=== PATIENT | male | born 1985 | race Caucasian/White ===

== ENCOUNTER 2020-01-28 09:44 | Inpatient (IN) | payer MEDICAID, SELFPAY ==
[2020-01-28] VITALS (13 sets, daily range): BP systolic 106–208; BP diastolic 59–93; PULSE 68–118; RESP 13–20; TEMP 35.8–36.9; O2SAT 95–100; BMI 24.0
--- NOTE | 2020-01-28 09:53 | ED.SEIZURE ---
HPI - Seizure General Chief Complaint: Seizure Stated Complaint: seizure Time Seen by Provider: 01/28/20 09:52 Source: family and EMS Mode of arrival: EMS Limitations: altered mental status History of Present Illness HPI Narrative: patient with seizure disorder did not take medications x 2 days (keppra) per family seized 4 times at GTC with EMS no return to baseline and on arrival to ED another GTC seizure lasting 1 minute, no medications given en route complaint: seizure Onset (ago): hour(s) (started at 6am) Description of Episode: loss of consciousness and tonic-clonic movement Duration of episode: 2 -: minutes(s) Trauma: No Seizure History: Yes Place: Home Possible Precipitating Event: other (missed medications x 2 days) Treatments prior to arrival: none Related Data Allergies Allergy/AdvReac Type Severity Reaction Status Date / Time codeine [CODEINE] Allergy Unknown UNKNOWN Verified 01/28/20 09:48 procaine [From NOVOCAIN] Allergy Unknown UNKNOWN Verified 01/28/20 09:48 Review of Systems Review of Systems: ROS unable to be obtained due to altered mental status [facility] Past Medical History Medical History (Updated 01/28/20 @ 12:04 by Diane Shrestha DO) Bipolar 1 disorder Coronary artery disease Depression Hypertension Seizure Social History Social History (Updated 01/28/20 @ 10:05 by Diane Shrestha DO) Smoking Status: Current every day smoker Substance Use Type: Marijuana Advance Directives: No Advance Directives Information Provided: No Physical Exam Vital Signs and I&O and Narrative: Vital Signs and I&O: Vital Signs Temp 96.4 F L 01/28/20 09:48 Pulse 106 H 01/28/20 11:44 Resp 20 01/28/20 11:44 BP 163/81 H 01/28/20 11:44 Pulse Ox 100 01/28/20 11:44 Intake & Output 01/27/20 01/28/20 01/28/20 18:59 06:59 18:59 Intake Total 3.356 / 3.356 Balance 3.356 / 3.356 Weight 75.9 kg Intake: Intake, IV Amoun t 3.356 / 3.356 propofoL 1,000 mg In 100 ml @ 3.356 / 3.356 Per Protocol I VCONT .Q0M COUNTS INCLUDE 234 BEDS AT THE [facility] Rx #:[id number] Body Mass Index 24.0 Course Course Hospital Course: at 119 the patient seems to be waking up and reaching for the ETT tube, increased sedation no obvious seizure activity at this time, added on fentanyl / propofol / versed Reevaluation(s) Reevaluation #1: 4 seizures at home since 6am, seized again with EMS on arrival to ED bed, he is not protecting his airway he was intubated immediately for airway protection Reevaluation #2: call to neurology 1015am, will also discuss with ICU, RN laundry marker supervisor calling to see if EEG available Reevaluation #3: lactic acidosis, WBC count, VS, renal insufficiency due to seizures and not infection or severe sepsis Time: 11:15 Additional Reevaluation(s): repeat call to neurology 1134am spoke to Dr. [place] posey with 2G keppra now in 12 hours repeat another dose of 2G keppra for a todal dose of 4G admit to ICU Procedures Intubation Time out performed: Yes sedative: Versed Mg Given: 2 paralytic: Rocuronium Mg Given: 50 Laryngoscope: Ezequiel ET Tube Size: 8 ET Tube Uncuffed: No Tube Secured Depth (cm): 24 Tube Secured Location: teeth Tube Placement Confirmation: visualized tube passing through cords and equal breath sounds bilaterally Patient Tolerated Procedure: well Intubation Complications: none MDM - Seizure MDM Narrative Medical decision making narrative: patient in status given 4 seizures at home additional seizure in ED, not protecting airway, family notified RN in ED he did not take medications x 2 days, has extensive medical problems at this time will need intubation and stat call to see if EEG available, after intubation will place on propofol, will labs, culture, CT head/CXR, planned admit to ICU if Neuro available Lab Data Result diagrams: 01/28/20 10:14 01/28/20 10:13 Labs: Lab Results 01/28/20 01/28/20 01/28/20 Range/Units 09:50 10:12 10:12 WBC (4.8-10.8) X10*3/uL RBC (4.60-5.80) X10*6/uL Hgb (14.0-18.0) g/dl Hct (42-52) % MCV (80-98) fL MCH (27.0-33.0) pg MCHC (31.0-36.0) g/dl RDW (11.0-16.0) % Plt Count (160-400) X10*3/uL MPV (9.4-12.4) fL Absolute Nucleated RBC (0.0-0.012) X10*3/uL Nucleated RBC % (auto) (0.0-0.2) /100WBC Neutrophils % (Manual) (45-73) % Band Neutrophils % (3-5) % Lymphocytes % (Manual) (20-40) % Monocytes % (Manual) (2-11) % Eosinophils % (Manual) (0-4) % Metamyelocytes % % Neutrophils # (Manual) (2.2-7.9) X10*3/uL Lymphocytes # (Manual) (0.6-4.8) X10*3/uL Monocytes # (Manual) (0.0-1.2) X10*3/uL Eosinophils # (Manual) (0.0-0.8) X10*3/UL Metamyelocytes # X10*3/uL Platelet Estimate (NORMAL) Plt Morphology Comment RBC Morphology Acanthocytes (Spur) PT (10.8-13.0) SEC INR (0.9-1.1) APTT (24.1-38.0) SEC VBG pH 6.58 L* (7.32-7.43) VBG pCO2 44 mmhg VBG Oxygen Liters/Min 100% VBG pO2 155 mmhg VBG HCO3 4 mmol/L VBG O2 Saturation 95.9 % VBG Base Excess -35.5 mmol/L Sodium (135-145) mmol/L Potassium (3.3-5.1) mmol/l Chloride (96-108) mmol/L Carbon Dioxide (22-29) mmol/L Anion Gap BUN (9-16) mg/dL Creatinine (0.5-1.4) mg/dL Estim Creat Clear Calc Estimated GFR POC Glucose 232 H (60-115) mg/dL Random Glucose (60-115) mg/dL Lactic Acid (0.5-2.0) mmol/L Calcium (8.4-10.2) mg/dL Magnesium (1.6-2.6) mg/dL Total Bilirubin (0.0-1.0) mg/dL Direct Bilirubin (0.0-0.5) mg/dL AST (5-37) U/L ALT (0-40) U/L Alkaline Phosphatase (39-117) U/L Ammonia (13-55) umol/L Total Creatine Kinase (38-174) U/L Total Protein (6.5-8.0) g/dL Albumin (3.5-5.0) g/dL Lipase (8-78) U/L Urine Color Urine Appearance Urine pH (5.0-8.0) Ur Specific [place] (1.005-1.025) Urine Protein (NEG-TRACE) MG/DL Urine Glucose (UA) (NEG) MG/DL Urine Ketones (NEG) MG/DL Urine Blood (NEG) Urine Nitrite (NEG) Ur Leukocyte Esterase (NEG) Urine RBC (0) /HPF Urine WBC (0-4) /HPF Ur Squamous Epith Cells /LPF Amorphous Sediment /LPF Urine Bacteria /LPF Urine Mucus /LPF Urine Sperm Salicylates (15-30) mg/dL Acetaminophen (<30) mcg/mL Ethyl Alcohol < 10 mg/dL Acetone, Qual (Negative) 01/28/20 01/28/20 01/28/20 Range/Units 10:13 10:13 10:13 WBC (4.8-10.8) X10*3/uL RBC (4.60-5.80) X10*6/uL Hgb (14.0-18.0) g/dl Hct (42-52) % MCV (80-98) fL MCH (27.0-33.0) pg MCHC (31.0-36.0) g/dl RDW (11.0-16.0) % Plt Count (160-400) X10*3/uL MPV (9.4-12.4) fL Absolute Nucleated RBC (0.0-0.012) X10*3/uL Nucleated RBC % (auto) (0.0-0.2) /100WBC Neutrophils % (Manual) (45-73) % Band Neutrophils % (3-5) % Lymphocytes % (Manual) (20-40) % Monocytes % (Manual) (2-11) % Eosinophils % (Manual) (0-4) % Metamyelocytes % % Neutrophils # (Manual) (2.2-7.9) X10*3/uL Lymphocytes # (Manual) (0.6-4.8) X10*3/uL Monocytes # (Manual) (0.0-1.2) X10*3/uL Eosinophils # (Manual) (0.0-0.8) X10*3/UL Metamyelocytes # X10*3/uL Platelet Estimate (NORMAL) Plt Morphology Comment RBC Morphology Acanthocytes (Spur) PT (10.8-13.0) SEC INR (0.9-1.1) APTT (24.1-38.0) SEC VBG pH (7.32-7.43) VBG pCO2 mmhg VBG Oxygen Liters/Min VBG pO2 mmhg VBG HCO3 mmol/L VBG O2 Saturation % VBG Base Excess mmol/L Sodium 130 L (135-145) mmol/L Potassium 4.8 (3.3-5.1) mmol/l Chloride 97 (96-108) mmol/L Carbon Dioxide < 5 L* (22-29) mmol/L Anion Gap TNP BUN 11 (9-16) mg/dL Creatinine 1.45 H (0.5-1.4) mg/dL Estim Creat Clear Calc 74.1 Estimated GFR 56 POC Glucose (60-115) mg/dL Random Glucose 260 H (60-115) mg/dL Lactic Acid 22.6 H* (0.5-2.0) mmol/L Calcium 9.3 (8.4-10.2) mg/dL Magnesium 3.0 H (1.6-2.6) mg/dL Total Bilirubin < 0.2 (0.0-1.0) mg/dL Direct Bilirubin < 0.2 (0.0-0.5) mg/dL AST 20 (5-37) U/L ALT 18 (0-40) U/L Alkaline Phosphatase 146 H (39-117) U/L Ammonia 171 H (13-55) umol/L Total Creatine Kinase 213 H (38-174) U/L Total Protein 7.4 (6.5-8.0) g/dL Albumin 4.6 (3.5-5.0) g/dL Lipase 20 (8-78) U/L Urine Color Urine Appearance Urine pH (5.0-8.0) Ur Specific [place] (1.005-1.025) Urine Protein (NEG-TRACE) MG/DL Urine Glucose (UA) (NEG) MG/DL Urine Ketones (NEG) MG/DL Urine Blood (NEG) Urine Nitrite (NEG) Ur Leukocyte Esterase (NEG) Urine RBC (0) /HPF Urine WBC (0-4) /HPF Ur Squamous Epith Cells /LPF Amorphous Sediment /LPF Urine Bacteria /LPF Urine Mucus /LPF Urine Sperm Salicylates < 5.0 L (15-30) mg/dL Acetaminophen < 1 (<30) mcg/mL Ethyl Alcohol mg/dL Acetone, Qual Negative (Negative) 01/28/20 01/28/20 01/28/20 Range/Units 10:14 10:14 10:16 WBC 23.9 H (4.8-10.8) X10*3/uL RBC 4.60 (4.60-5.80) X10*6/uL Hgb 14.3 (14.0-18.0) g/dl Hct 44.9 (42-52) % MCV 97.6 (80-98) fL MCH 31.1 (27.0-33.0) pg MCHC 31.8 (31.0-36.0) g/dl RDW 12.0 (11.0-16.0) % Plt Count 418 H (160-400) X10*3/uL MPV 8.8 L (9.4-12.4) fL Absolute Nucleated RBC 0.000 (0.0-0.012) X10*3/uL Nucleated RBC % (auto) 0.0 (0.0-0.2) /100WBC Neutrophils % (Manual) 60 (45-73) % Band Neutrophils % 5 (3-5) % Lymphocytes % (Manual) 30 (20-40) % Monocytes % (Manual) 2 (2-11) % Eosinophils % (Manual) 1 (0-4) % Metamyelocytes % 2 % Neutrophils # (Manual) 15.5 H (2.2-7.9) X10*3/uL Lymphocytes # (Manual) 7.2 H (0.6-4.8) X10*3/uL Monocytes # (Manual) 0.5 (0.0-1.2) X10*3/uL Eosinophils # (Manual) 0.2 (0.0-0.8) X10*3/UL Metamyelocytes # 0.5 X10*3/uL Platelet Estimate SLIGHTLY INCREASED (NORMAL) Plt Morphology Comment NORM RBC Morphology NOTED Acanthocytes (Spur) 1+ PT 12.0 (10.8-13.0) SEC INR 1.0 (0.9-1.1) APTT 49.5 H (24.1-38.0) SEC VBG pH (7.32-7.43) VBG pCO2 mmhg VBG Oxygen Liters/Min VBG pO2 mmhg VBG HCO3 mmol/L VBG O2 Saturation % VBG Base Excess mmol/L Sodium (135-145) mmol/L Potassium (3.3-5.1) mmol/l Chloride (96-108) mmol/L Carbon Dioxide (22-29) mmol/L Anion Gap BUN (9-16) mg/dL Creatinine (0.5-1.4) mg/dL Estim Creat Clear Calc Estimated GFR POC Glucose (60-115) mg/dL Random Glucose (60-115) mg/dL Lactic Acid (0.5-2.0) mmol/L Calcium (8.4-10.2) mg/dL Magnesium (1.6-2.6) mg/dL Total Bilirubin (0.0-1.0) mg/dL Direct Bilirubin (0.0-0.5) mg/dL AST (5-37) U/L ALT (0-40) U/L Alkaline Phosphatase (39-117) U/L Ammonia (13-55) umol/L Total Creatine Kinase (38-174) U/L Total Protein (6.5-8.0) g/dL Albumin (3.5-5.0) g/dL Lipase (8-78) U/L Urine Color YELLOW Urine Appearance HAZY Urine pH 5.0 (5.0-8.0) Ur Specific [place] >= 1.030 H (1.005-1.025) Urine Protein 1+ H (NEG-TRACE) MG/DL Urine Glucose (UA) NEG (NEG) MG/DL Urine Ketones NEG (NEG) MG/DL Urine Blood 2+ H (NEG) Urine Nitrite NEG (NEG) Ur Leukocyte Esterase NEG (NEG) Urine RBC 15-29 H (0) /HPF Urine WBC 0 (0-4) /HPF Ur Squamous Epith Cells 1+ /LPF Amorphous Sediment 2+ /LPF Urine Bacteria NONE /LPF Urine Mucus 2+ /LPF Urine Sperm NOTED Salicylates (15-30) mg/dL Acetaminophen (<30) mcg/mL Ethyl Alcohol mg/dL Acetone, Qual (Negative) ECG Data Attestation: I personally reviewed and interpreted this ECG as follows: ECG interpretation date: 01/28/20 ECG interpretation time: 11:36 Interpretation: Rate: 103 Rhythm: sinus tachycardia [place]: right Normal P waves. Normal BECK. Normal QRS complex. ST T wave : normal qTC: normal The study has been interpreted contemporaneously by me. . Critical Care Time Critical Care Time Critical Care Time: Yes Total Critical Care Time: 90 Attestation: I personally attest to this time spent taking care of the patient Discharge Plan Discharge Clinical Impression: Status epilepticus, Acidosis, lactic Leukocytosis Qualifiers: Leukocytosis type: other Qualified Code(s): D72.828 - Other elevated white blood cell count Patient Disposition: Admitted As Inpatient
[2020-01-28 09:54] LABS: Glucose, Whole Blood 232 mg/dL (60-115)
--- NOTE | 2020-01-28 09:54 | CT_ITS ---
EXAMINATION: CT HEAD WITHOUT CONTRAST CLINICAL INFORMATION: Seizures. COMPARISON: Brain MRI from 08/28/2016. TECHNIQUE: Contiguous axial imaging was performed from the skull base to vertex without intravenous administration of contrast. DLP: 1442 mGy-cm FINDINGS: Exam is mildly motion degraded. There is no evidence of acute intracranial hemorrhage or edematous territorial infarction. There is no abnormal attenuation within the brain parenchyma. [place]-white matter differentiation is preserved. The ventricles are normal in size and configuration. No evidence for obstructive hydrocephalus. No abnormal mass effect or midline shift. The cerebellar tonsils are normally positioned. No extra-axial fluid collections. The patient is intubated with orogastric tube in place. No acute soft tissue or osseous abnormalities. Mild mucosal thickening of the paranasal sinuses. The mastoid air cells and middle ear cavities are clear. IMPRESSION: Exam is mildly motion degraded. Within this limitation, there is no evidence for acute intracranial hemorrhage or edematous territorial infarction. No demonstrated abnormal mass effect.
--- NOTE | 2020-01-28 09:54 | PC.NURSE ---
upon arrival pt snoring and had a sz 2mg ativan given upon arrival transfer to room 5 for intubation
--- NOTE | 2020-01-28 09:55 | ECG_ITS ---
Test Reason : WEAKNESS seizure Blood Pressure : / mmHG Vent. Rate : 103 BPM Atrial Rate : 103 BPM P-R Int : 138 ms QRS Dur : 098 ms QT Int : 322 ms P-R-T Axes : 075 096 012 degrees QTc Int : 421 ms Sinus tachycardia Rightward axis Cannot rule out Inferior infarct , age undetermined Abnormal ECG No previous ECGs available Referred By: Daine Shrestha Electronically Signed By:MAN MCNEILL
--- NOTE | 2020-01-28 09:55 | XR_ITS ---
EXAMINATION: XR CHEST CLINICAL INFORMATION: Status post intubation. COMPARISON: None TECHNIQUE: Frontal view of the chest was obtained. FINDINGS: The tip the endotracheal tube is approximately 3 cm above the michael. The feeding tube reaches the stomach. The lungs are hypoexpanded but clear. The pleural spaces are clear. The heart and mediastinal structures are normal. No bony abnormality is evident. IMPRESSION: Endotracheal tube 3 cm above the michael. No acute abnormality demonstrated.
[2020-01-28] MEDS: LORazepam 2 MG/ML VIAL IVPUSH (10:18)
[2020-01-28] MEDS: Midazolam HCl/PF 2 MG/2 ML VIAL IVPUSH (10:18)
[2020-01-28] MEDS: Rocuronium Bromide 50 MG/5 ML VIAL IVPUSH (10:18)
[2020-01-28] MEDS: levETIRAcetam 1,000 MG in 0.9 % Sodium Chloride 100 ML 400 MG IV ×2 (10:18→11:39)
[2020-01-28] MEDS: 0.9 % Sodium Chloride 1,000 ML 999 ML IVCONT ×2 (10:19→11:38)
[2020-01-28] MEDS: propofoL 1,000 MG/100 ML VIAL 9.11 MG IVCONT (10:21)
[2020-01-28 10:22] LABS: Pt Ventilation O2% Venous 100%
[2020-01-28 10:27] LABS: Glucose Urine UA NEG (NEG); Leukocyte Esterase Urine NEG (NEG); Nitrite Urine NEG (NEG); Specific Gravity - Urine >= 1.030 (1.005-1.025); Urine Blood 2+ (NEG); Urine Ketones NEG (NEG); Urine Protein 1+ MG/DL (NEG-TRACE)
[2020-01-28 10:30] LABS: Appearance Urine HAZY; Color Urine YELLOW
[2020-01-28 10:33] LABS: Partial Thromboplastin Time 49.5 SEC (24.1-38.0)
[2020-01-28 10:38] LABS: Hematocrit 44.9 % (42-52); Hemoglobin 14.3 g/dl (14.0-18.0); Mean Corpuscular HGB Conc 31.8 g/dl (31.0-36.0); Mean Corpuscular Hemoglobin 31.1 pg (27.0-33.0); Mean Corpuscular Volume 97.6 fL (80-98); Mean Platelet Volume 8.8 fL (9.4-12.4); Platelet Count 418 X10*3/uL (160-400); White Blood Count 23.9 X10*3/uL (4.8-10.8)
[2020-01-28 10:40] LABS: Squamous Epithelial Cell Urine 1+ /LPF; WBC Urine 0 /HPF (0-4)
[2020-01-28 10:41] LABS: Amorphous Sediment Urine 2+ /LPF; Mucus Urine 2+ /LPF; Sperm Urine NOTED
[2020-01-28 10:45] LABS: Ammonia 171 umol/L (13-55)
[2020-01-28 10:52] LABS: Ethanol < 10 mg/dL
[2020-01-28] MEDS: fentaNYL citrate/NS 1,000 MCG/100 ML PLAST..BAG 2.5 MCG IVCONT (10:56)
[2020-01-28 11:10] LABS: Acetaminophen LAB < 1 mcg/mL (<30); Alanine Aminotransferase 18 U/L (0-40); Albumin Level 4.6 g/dL (3.5-5.0); Alkaline Phosphatase 146 U/L (39-117); Aspartate Amino Transferase 20 U/L (5-37); Blood Urea Nitrogen 11 mg/dL (9-16); Calcium 9.3 mg/dL (8.4-10.2); Carbon Dioxide < 5 mmol/L (22-29); Chloride 97 mmol/L (96-108); Creatinine Clr Calc Pharmacy 74.1; Estimated Glomerular Filt Rate 56; Glucose Random 260 mg/dL (60-115); Lactic Acid 22.6 mmol/L (0.5-2.0); Lipase 20 U/L (8-78); Potassium 4.8 mmol/l (3.3-5.1); Salicylate < 5.0 mg/dL (15-30); Sodium 130 mmol/L (135-145); Total Protein 7.4 g/dL (6.5-8.0)
[2020-01-28 11:17] LABS: HCO3 VBG 4 mmol/L; PCO2 VBG 44 mmhg; PO2 VBG 155 mmhg
[2020-01-28 11:18] LABS: Oxygen Saturation VBG 95.9 %; pH VBG 6.58 (7.32-7.43)
[2020-01-28 11:23] LABS: Bilirubin Direct < 0.2 mg/dL (0.0-0.5); Bilirubin Total < 0.2 mg/dL (0.0-1.0)
[2020-01-28 11:34] LABS: Band Neutrophils Percent 5 % (3-5); Eosinophils Absolute Manual 0.2 X10*3/UL (0.0-0.8); Eosinophils Percent Manual 1 % (0-4); Lymphocytes Absolute Manual 7.2 X10*3/uL (0.6-4.8); Lymphocytes Percent Manual 30 % (20-40); Metamyelocytes Absolute 0.5 X10*3/uL; Metamyelocytes Percent 2 %; Monocytes Absolute Manual 0.5 X10*3/uL (0.0-1.2); Monocytes Percent Manual 2 % (2-11); Neutrophils Absolute Manual 15.5 X10*3/uL (2.2-7.9); Neutrophils Percent Manual 60 % (45-73)
[2020-01-28 11:35] LABS: Acanthocytes 1+; RBC Morphology NOTED
[2020-01-28 11:36] LABS: Platelet Estimate SLIGHTLY INCREASED (NORMAL); Platelet Morphology Comment NORM
[2020-01-28] MEDS: 0.9 % Sodium Chloride 500 ML 1000 ML IV (11:38)
[2020-01-28 11:57] LABS: Acetone, serum QL Negative (Negative)
[2020-01-28 12:07] LABS: Troponin-I High Sensitivity 7.2 ng/L (<3.5-35.0)
[2020-01-28 12:20] LABS: Reflex Lactate? Lactic Acid Added
--- NOTE | 2020-01-28 12:59 | MHC.CM.PN ---
pt is in the icu . he is intubated, sedated on mechanical ventilator. pt is unable to participate in dc planning at this time. the patient lives c his parents in their home. he will [facility] s any services when medically stable. cm to cont. to follow.
[2020-01-28 13:27] LABS: Pt Ventilation O2% Venous 40%
[2020-01-28 13:34] LABS: Base Excess VBG -9.7 mmol/L; HCO3 VBG 18 mmol/L; PCO2 VBG 49 mmhg; PO2 VBG 43 mmhg
[2020-01-28 13:35] LABS: Oxygen Saturation VBG 69.8 %
--- NOTE | 2020-01-28 14:40 | PC.NURSE ---
propofol hung per emar prior to transfer to icu.
[2020-01-28] MEDS: fentaNYL citrate/PF 100 MCG/2 ML VIAL 200 MCG IVPUSH (14:55)
[2020-01-28] MEDS: propofoL 200 MG/20 ML VIAL 100 MG IVPUSH (15:13)
[2020-01-28 15:26] LABS: Reflex Lactate? 2 Y
[2020-01-28] MEDS: 0.9 % Sodium Chloride Flush 3 ML SYRINGE 2 ML IVFLUSH (16:12)
--- NOTE | 2020-01-28 16:38 | P.HPCC_ITS ---
History of Present Illness Date of Service: 01/28/20 Mr. Dewey was admitted to the ICU this afternoon after being intubated in the ED for seizures. The patient is a 34-year-old male with history of seizure disorder, bipolar dz, HTN, and h/o CAD. Reportedly has two stents. The patient is on the following medications at home: Aspirin 81 mg daily Play Vicks 75 mg daily Atorvastatin 80 mg daily Vitamin-D Clonidine 0.1 mg bid eslicarbazepine 1600 mg bid Keppra 1000 mg bid Dilantin ER 150 mg daily Prazosin 4 mg qhs Seroquel 200 mg bid Per his mother, the patient did not take his keppra for 2 days. According to family, he seized 4 times this morning at home since 6am. EMS was called. He was brought in by ambulance to the ED. On arrival to the ED he had another generalized tonic chronic seizure lasting 1 minute. He was given a dose of 2 mg of Ativan, which did not stop the seizure. He was therefore intubated with Versed, propofol, and rocuronium, and then put on a propofol drip. A fentanyl drip was added later when the patient was reaching for his endotracheal tube. Labs in the ED were notable for white count of 23.9, sodium of 130 (was 125 on June 16), bicarb less than 5, creatinine of 1.4, glucose of 260, initial lactate of 22, follow-up 3.0. Chest x-ray and head CT were negative. Dr. Shrestha spoke with Dr. Golden who recommended loading with 2G keppra, with a repeat in 12 hours, for a todal dose of 4G. The patient was then transferred to ICU. On arrival to the ICU, the patient was waking up and struggling to reach the endotracheal tube. He opened his eyes and looked at me and seemed to be interactive. We therefore resedated him in order to get him cleaned up and do our initial assessment. About 20 minutes later he was easily extubated. Post extubation, he is fully awake, alert, oriented, and appropriate. He is breathing easy with a sat of 99% on room air. Heart rate is 80, blood pressure is 113/69, temperature is 98.5 degrees. No JVD sitting up. Chest is clear to auscultation. Heart rate and rhythm are regular, with normal-sounding S1 and S2, with no murmur or gallops. The abdomen is benign, he has no peripheral edema. Neuro exam is completely intact. IMPRESSION: 1. Epilepsy. Recurrent seizures secondary to medication noncompliance. The Keppra and propofol seemed to have controlled the seizure focus. We?ll re-dose him with 2 g at 12 hours, and then continue his home medications. 2. History coronary artery disease. 3. History of bipolar disease. 4. AKILAH. I assume all his labs abnormalities are 2? to his acute seizures and will resolve by the morning. Otherwise usual supportive care. The patient can be transferred to [facility] and then potentially discharged home tomorrow after repeat labs. OK'd with Dr. Golden. Critical care time (including chart review, and multiple minutes at the bedside): 75+ minutes [facility] Past Medical History Medical History Bipolar 1 disorder Coronary artery disease Depression Hypertension Seizure Social History Social History (Updated 01/28/20 @ 10:05 by Diane Shrestha DO) Household Members: Family Housing: House Smoking Status: Current every day smoker Tobacco Type: Cigarette Second Hand Smoke Exposure: Yes Substance Use Type: Marijuana service: No Current occupational status: unemployed Meds Allergies Allergy/AdvReac Type Severity Reaction Status Date / Time codeine [CODEINE] Allergy Unknown UNKNOWN Verified 01/28/20 09:48 procaine [From NOVOCAIN] Allergy Unknown UNKNOWN Verified 01/28/20 09:48 Home Medications Medication Instructions Recorded Confirmed Type Aptiom 1,600 mg PO BID 01/28/20 01/28/20 History aspirin 81 mg PO DAILY 01/28/20 01/28/20 History atorvastatin 80 mg PO DAILY 01/28/20 01/28/20 History cholecalciferol (vitamin D3) 25 mcg PO DAILY 01/28/20 01/28/20 History [Vitamin D3] clonidine HCl 0.1 mg PO BID 01/28/20 01/28/20 History clopidogrel 75 mg PO DAILY 01/28/20 01/28/20 History hydroxyzine HCl 50 mg PO TID PRN 01/28/20 01/28/20 History levetiracetam [Keppra] 1,000 mg PO BID 01/28/20 01/28/20 History phenytoin sodium extended 100 mg PO DAILY 01/28/20 01/28/20 History [Dilantin Extended] phenytoin sodium extended 200 mg PO BEDTIME 01/28/20 01/28/20 History [Dilantin Extended] prazosin 4 mg PO BEDTIME 01/28/20 01/28/20 History quetiapine [Seroquel] 200 mg PO BID 01/28/20 01/28/20 History Physical Exam Vital Signs and I&O and Narrative: Vital Signs and I&O: Vital Signs Temp 96.4 F L 01/28/20 09:48 Pulse 73 01/28/20 15:00 Resp 13 01/28/20 15:00 BP 106/59 L 01/28/20 15:00 Pulse Ox 99 01/28/20 15:00 Intake & Output 01/27/20 01/28/20 01/28/20 18:59 06:59 18:59 Intake Total 3750.834 / 3750.83 4 Output Total 1230 / 1230 Balance 2520.834 / 2520.83 4 Urine Output (Aver age ml/kg/hr) 1.13 Weight 75.9 kg Intake: Intake, Oral Aidan unt 0 / 0 Intake, IV Amoun t 3750.834 / 3750.83 4 0.9 % Sodium C hloride 500 ml @ 500 / 500 1000 mls/hr IV .Q30M [facility] Rx#: [id number] levETIRAcetam 1,000 mg In 0.9 % 216.667 / 216.667 Sodium Chlorid e 100 ml @ 400 mls/hr IV ONCE ONE Rx#: [id number] 0.9 % Sodium C hloride 1,000 ml 2999 / 2999 @ 999 mls/hr I VCONT .Q1H1M [facility] Rx#:[id number] fentaNYL citra te/NS 1,000 mcg 10.167 / 10.167 In 100 ml @ Pe r Protocol IVCONT .Q0M [facility] Rx#:[id number] propofoL 1,000 mg In 100 ml @ 25.000 / 25.000 Per Protocol I VCONT .Q0M [facility] Rx #:[id number] Output: Output, Urine Am ount 130 / 130 Output, Emesis A mount 200 / 200 Output, Urine Am ount (Catheter) 900 / 900 Urethral 900 / 900 Other: Number of Unmeas ured Emesis 3 Episodes Urine Color Yellow Emesis Color Clear Body Mass Index 24.0 Results Labs Labs: Laboratory Tests 01/28/20 01/28/20 01/28/20 09:50 10:12 10:12 WBC RBC Hgb Hct MCV MCH MCHC RDW Plt Count MPV Absolute Nucleated RBC Nucleated RBC % (auto) Neutrophils % (Manual) Band Neutrophils % Lymphocytes % (Manual) Monocytes % (Manual) Eosinophils % (Manual) Metamyelocytes % Neutrophils # (Manual) Lymphocytes # (Manual) Monocytes # (Manual) Eosinophils # (Manual) Metamyelocytes # Platelet Estimate Plt Morphology Comment RBC Morphology Acanthocytes (Spur) PT INR APTT VBG pH 6.58 L* VBG pCO2 44 VBG Oxygen Liters/Min 100% VBG pO2 155 VBG HCO3 4 VBG O2 Saturation 95.9 VBG Base Excess -35.5 Sodium Potassium Chloride Carbon Dioxide Anion Gap BUN Creatinine Estim Creat Clear Calc Estimated GFR POC Glucose 232 H Random Glucose Lactic Acid Lactic Acid Fup @ 2Hr Calcium Magnesium Total Bilirubin Direct Bilirubin AST ALT Alkaline Phosphatase Ammonia Total Creatine Kinase Troponin I High Sens Total Protein Albumin Lipase Urine Color Urine Appearance Urine pH Ur Specific [place] Urine Protein Urine Glucose (UA) Urine Ketones Urine Blood Urine Nitrite Ur Leukocyte Esterase Urine RBC Urine WBC Ur Squamous Epith Cells Amorphous Sediment Urine Bacteria Urine Mucus Urine Sperm Salicylates Acetaminophen Ethyl Alcohol < 10 Acetone, Qual 01/28/20 01/28/20 01/28/20 10:12 10:13 10:13 WBC RBC Hgb Hct MCV MCH MCHC RDW Plt Count MPV Absolute Nucleated RBC Nucleated RBC % (auto) Neutrophils % (Manual) Band Neutrophils % Lymphocytes % (Manual) Monocytes % (Manual) Eosinophils % (Manual) Metamyelocytes % Neutrophils # (Manual) Lymphocytes # (Manual) Monocytes # (Manual) Eosinophils # (Manual) Metamyelocytes # Platelet Estimate Plt Morphology Comment RBC Morphology Acanthocytes (Spur) PT INR APTT VBG pH VBG pCO2 VBG Oxygen Liters/Min VBG pO2 VBG HCO3 VBG O2 Saturation VBG Base Excess Sodium 130 L Potassium 4.8 Chloride 97 Carbon Dioxide < 5 L* Anion Gap TNP BUN 11 Creatinine 1.45 H Estim Creat Clear Calc 74.1 Estimated GFR 56 POC Glucose Random Glucose 260 H Lactic Acid 22.6 H* Lactic Acid Fup @ 2Hr Calcium 9.3 Magnesium 3.0 H Total Bilirubin < 0.2 Direct Bilirubin < 0.2 AST 20 ALT 18 Alkaline Phosphatase 146 H Ammonia Total Creatine Kinase 213 H Troponin I High Sens 7.2 Total Protein 7.4 Albumin 4.6 Lipase 20 Urine Color Urine Appearance Urine pH Ur Specific [place] Urine Protein Urine Glucose (UA) Urine Ketones Urine Blood Urine Nitrite Ur Leukocyte Esterase Urine RBC Urine WBC Ur Squamous Epith Cells Amorphous Sediment Urine Bacteria Urine Mucus Urine Sperm Salicylates < 5.0 L Acetaminophen < 1 Ethyl Alcohol Acetone, Qual Negative 01/28/20 01/28/20 01/28/20 10:13 10:14 10:14 WBC 23.9 H RBC 4.60 Hgb 14.3 Hct 44.9 MCV 97.6 MCH 31.1 MCHC 31.8 RDW 12.0 Plt Count 418 H MPV 8.8 L Absolute Nucleated RBC 0.000 Nucleated RBC % (auto) 0.0 Neutrophils % (Manual) 60 Band Neutrophils % 5 Lymphocytes % (Manual) 30 Monocytes % (Manual) 2 Eosinophils % (Manual) 1 Metamyelocytes % 2 Neutrophils # (Manual) 15.5 H Lymphocytes # (Manual) 7.2 H Monocytes # (Manual) 0.5 Eosinophils # (Manual) 0.2 Metamyelocytes # 0.5 Platelet Estimate SLIGHTLY INCREASED Plt Morphology Comment NORM RBC Morphology NOTED Acanthocytes (Spur) 1+ PT 12.0 INR 1.0 APTT 49.5 H VBG pH VBG pCO2 VBG Oxygen Liters/Min VBG pO2 VBG HCO3 VBG O2 Saturation VBG Base Excess Sodium Potassium Chloride Carbon Dioxide Anion Gap BUN Creatinine Estim Creat Clear Calc Estimated GFR POC Glucose Random Glucose Lactic Acid Lactic Acid Fup @ 2Hr Calcium Magnesium Total Bilirubin Direct Bilirubin AST ALT Alkaline Phosphatase Ammonia 171 H Total Creatine Kinase Troponin I High Sens Total Protein Albumin Lipase Urine Color Urine Appearance Urine pH Ur Specific [place] Urine Protein Urine Glucose (UA) Urine Ketones Urine Blood Urine Nitrite Ur Leukocyte Esterase Urine RBC Urine WBC Ur Squamous Epith Cells Amorphous Sediment Urine Bacteria Urine Mucus Urine Sperm Salicylates Acetaminophen Ethyl Alcohol Acetone, Qual 01/28/20 01/28/20 01/28/20 10:16 12:52 13:20 WBC RBC Hgb Hct MCV MCH MCHC RDW Plt Count MPV Absolute Nucleated RBC Nucleated RBC % (auto) Neutrophils % (Manual) Band Neutrophils % Lymphocytes % (Manual) Monocytes % (Manual) Eosinophils % (Manual) Metamyelocytes % Neutrophils # (Manual) Lymphocytes # (Manual) Monocytes # (Manual) Eosinophils # (Manual) Metamyelocytes # Platelet Estimate Plt Morphology Comment RBC Morphology Acanthocytes (Spur) PT INR APTT VBG pH 7.20 L* VBG pCO2 49 VBG Oxygen Liters/Min 40% VBG pO2 43 VBG HCO3 18 VBG O2 Saturation 69.8 VBG Base Excess -9.7 Sodium Potassium Chloride Carbon Dioxide Anion Gap BUN Creatinine Estim Creat Clear Calc Estimated GFR POC Glucose Random Glucose Lactic Acid Lactic Acid Fup @ 2Hr 3.0 H* Calcium Magnesium Total Bilirubin Direct Bilirubin AST ALT Alkaline Phosphatase Ammonia Total Creatine Kinase Troponin I High Sens Total Protein Albumin Lipase Urine Color YELLOW Urine Appearance HAZY Urine pH 5.0 Ur Specific [place] >= 1.030 H Urine Protein 1+ H Urine Glucose (UA) NEG Urine Ketones NEG Urine Blood 2+ H Urine Nitrite NEG Ur Leukocyte Esterase NEG Urine RBC 15-29 H Urine WBC 0 Ur Squamous Epith Cells 1+ Amorphous Sediment 2+ Urine Bacteria NONE Urine Mucus 2+ Urine Sperm NOTED Salicylates Acetaminophen Ethyl Alcohol Acetone, Qual Critical Care Time Critical Care Time (minutes): 90
--- NOTE | 2020-01-28 18:15 | PC.NURSE ---
Pt arriving on unit ~1445 this afternoon; intubated with #8 et tube at 24 cm lip line; pt on ac settings, pt quickly roused awake once moved from stretcher to bed; pt medicated with additional fentanyl and propofol (see mar for details); vss; lung sounds clear and diminished; no edema; restraints in place for airway protection; plan to extubate and wean when pt more awake- propofol and fentanyl gtt shut off ~1500 to wake, wean and extubate per dr almazan; extubation orders in; pt transitioend to 5/5 psv settings; sats 98%; pt extubated at 1520 with respiratory to room air, pt suctioned, pt stating needing to void, f/c removed, voiding in urinal; 20 g in r wrist d/c'ed for discomfort, 18g in lac flushed and working well; pt mother called- updated,pt speaking with son; pt mother at bedside this evening ~1700; home med list updated with pt mother; pt voicing wanting to go home, pt discussing this with dr almazan, pt educated on importance of remaining in hospital at this time; pt remains cooperative; nsg will continue to monitor
--- NOTE | 2020-01-28 19:30 | P.DS_ITS ---
DS: Providers Provider Date of admission: 01/28/20 11:55 Primary care physician: Mariela Piña MD DS: Summary Hospital Course Hospital Course: at 119 the patient seems to be waking up and reaching for the ETT tube, increased sedation no obvious seizure activity at this time, added on fentanyl / propofol / versed Mr. Dewey was admitted to the ICU this afternoon after being intubated in the ED for seizures.' DISCHARGE DIAGNOSIS: 1. Epilepsy. Recurrent seizures secondary to medication noncompliance. The Keppra and propofol seemed to have controlled the seizure focus. We?ll re-dose him with 2 g at 12 hours, and then continue his home medications. 2. History coronary artery disease. 3. History of bipolar disease. 4. AKILAH. I assume all his labs abnormalities are 2? to his acute seizures and will resolve by the morning. HPI and Hospital Course: The patient is a 34-year-old male with history of seizure disorder, bipolar dz, HTN, and h/o CAD. Reportedly has two stents. Per his mother, the patient did not take his keppra for 2 days. According to family, he seized 4 times this morning at home since 6am. EMS was called. He was brought in by ambulance to the ED. On arrival to the ED he had another generalized tonic chronic seizure lasting 1 minute. He was given a dose of 2 mg of Ativan, which did not stop the seizure. He was therefore intubated with Versed, propofol, and rocuronium, and then put on a propofol drip. A fentanyl drip was added later when the patient was reaching for his endotracheal tube. Labs in the ED were notable for white count of 23.9, sodium of 130 (was 125 on June 16), bicarb less than 5, creatinine of 1.4, glucose of 260, initial lactate of 22, follow-up 3.0. Chest x-ray and head CT were negative. Dr. Shrestha spoke with Dr. Golden who recommended loading with 2G keppra, with a repeat in 12 hours, for a todal dose of 4G. The patient was then transferred to ICU. On arrival to the ICU, the patient was waking up and struggling to reach the endotracheal tube. He opened his eyes and looked at me and seemed to be interactive. We therefore resedated him in order to get him cleaned up and do our initial assessment. About 20 minutes later he was easily extubated. Post extubation, he is fully awake, alert, oriented, and appropriate. He is breathing easy with a sat of 99% on room air. Heart rate is 80, blood pressure is 113/69, temperature is 98.5 degrees. No JVD sitting up. Chest is clear to auscultation. Heart rate and rhythm are regular, with normal-sounding S1 and S2, with no murmur or gallops. The abdomen is benign, he has no peripheral edema. Neuro exam is completely intact. This evening patient is completely awake A and O x 3 NAD, following commands no complaints. Pt threatening to leave AMA if not dc this evening. I discussed with pt risk of leaving today and before checking labs in am, he and mom understand sz and even is a risk, despite they want to be discharged. I reviewed his home meds, corrected them and encourage intake of Keppra. Exam at Discharge: General: Alert oriented x3 no acute distress Skin: Intact, no lesions or rash HEENT: Normocephalic, atraumatic, extraocular movements intact, neck is supple, no lymphadenopathy. Buccal mucosa moist. Throat midline. Cardiac: Clear S1-S2, no murmurs rubs or gallops. Pulmonary: Clear to auscultation, no wheezes, rales or rhonchi. Abdomen: Protuberant, positive bowel sounds in all 4 quadrants. Soft, nontender, no rebound or guarding. No CVA tenderness. Musculoskeletal: Moving all 4 extremities upon request a major joints, no calf tenderness, no edema. Neurologic: As above, no focal deficits. Vascular: 2+ pulses upper and lower extremities distally. Discharge Medications: Aspirin 81 mg daily Plavix 75 mg daily Atorvastatin 80 mg daily Vitamin-D 25 mcg po daily Clonidine 0.1 mg bid Aptiom 1600 mg bid Keppra 1000 mg bid Dilantin ER 100 mg daily am Dilantin ER 200 mg po bedtime Prazosin 4 mg qhs Seroquel 200 mg bid Fup: with PCP in 2 days. Diet:Regular Activity: As tolerated Time Spent with Patient Time attestation: Total time spent providing and/or coordinating discharge services: Physical Exam Vital Signs and I&O and Narrative: Vital Signs and I&O: Vital Signs Temp 98.5 F 01/28/20 16:00 Pulse 84 01/28/20 19:00 Resp 13 01/28/20 19:00 BP 126/74 01/28/20 19:00 Pulse Ox 100 01/28/20 19:00 Intake & Output 01/28/20 01/28/20 01/29/20 06:59 18:59 06:59 Intake Total 4230.834 / 4470.83 4 240 / 4470.834 Output Total 2205 / 2355 150 / 2355 Balance 2025.834 / 2115.83 4 90 / 2115.834 Urine Output (Aver age ml/kg/hr) 2.20 0.16 Weight 75.9 kg Intake: Intake, Oral Pandora unt 480 / 720 240 / 720 Intake, IV Amoun t 3750.834 / 3750.83 4 0.9 % Sodium C hloride 500 ml @ 500 / 500 1000 mls/hr IV .Q30M [facility] Rx#: [id number] levETIRAcetam 1,000 mg In 0.9 % 216.667 / 216.667 Sodium Chlorid e 100 ml @ 400 mls/hr IV ONCE ONE Rx#: [id number] 0.9 % Sodium C hloride 1,000 ml 2999 / 2999 @ 999 mls/hr I VCONT .Q1H1M [facility] Rx#:[id number] fentaNYL citra te/NS 1,000 mcg 10.167 / 10.167 In 100 ml @ Pe r Protocol IVCONT .Q0M [facility] Rx#:[id number] propofoL 1,000 mg In 100 ml @ 25.000 / 25.000 Per Protocol I VCONT .Q0M [facility] Rx #:[id number] Output: Output, Urine Am ount 1105 / 1255 150 / 1255 Output, Emesis A mount 200 / 200 Output, Urine Am ount (Catheter) 900 / 900 Urethral 900 / 900 Other: Number of Unmeas ured Emesis 3 Episodes Urine Urinal Urine Color Pale Yellow Emesis Color Clear Body Mass Index 24.0 DS: Data Data Completed and Pending Labs on day of discharge: Labs from last 24 hours 01/28/20 01/28/20 01/28/20 13:20 12:52 10:16 WBC RBC Hgb Hct MCV MCH MCHC RDW Plt Count MPV Absolute Nucleated RBC Nucleated RBC % (auto) Neutrophils % (Manual) Band Neutrophils % Lymphocytes % (Manual) Monocytes % (Manual) Eosinophils % (Manual) Metamyelocytes % Neutrophils # (Manual) Lymphocytes # (Manual) Monocytes # (Manual) Eosinophils # (Manual) Metamyelocytes # Platelet Estimate Plt Morphology Comment RBC Morphology Acanthocytes (Spur) PT INR APTT VBG pH 7.20 L* VBG pCO2 49 VBG Oxygen Liters/Min 40% VBG pO2 43 VBG HCO3 18 VBG O2 Saturation 69.8 VBG Base Excess -9.7 Sodium Potassium Chloride Carbon Dioxide Anion Gap BUN Creatinine Estim Creat Clear Calc Estimated GFR POC Glucose Random Glucose Lactic Acid Lactic Acid Fup @ 2Hr 3.0 H* Calcium Magnesium Total Bilirubin Direct Bilirubin AST ALT Alkaline Phosphatase Ammonia Total Creatine Kinase Troponin I High Sens Total Protein Albumin Lipase Urine Color YELLOW Urine Appearance HAZY Urine pH 5.0 Ur Specific [place] >= 1.030 H Urine Protein 1+ H Urine Glucose (UA) NEG Urine Ketones NEG Urine Blood 2+ H Urine Nitrite NEG Ur Leukocyte Esterase NEG Urine RBC 15-29 H Urine WBC 0 Ur Squamous Epith Cells 1+ Amorphous Sediment 2+ Urine Bacteria NONE Urine Mucus 2+ Urine Sperm NOTED Salicylates Acetaminophen Ethyl Alcohol Acetone, Qual 01/28/20 01/28/20 01/28/20 10:14 10:14 10:13 WBC 23.9 H RBC 4.60 Hgb 14.3 Hct 44.9 MCV 97.6 MCH 31.1 MCHC 31.8 RDW 12.0 Plt Count 418 H MPV 8.8 L Absolute Nucleated RBC 0.000 Nucleated RBC % (auto) 0.0 Neutrophils % (Manual) 60 Band Neutrophils % 5 Lymphocytes % (Manual) 30 Monocytes % (Manual) 2 Eosinophils % (Manual) 1 Metamyelocytes % 2 Neutrophils # (Manual) 15.5 H Lymphocytes # (Manual) 7.2 H Monocytes # (Manual) 0.5 Eosinophils # (Manual) 0.2 Metamyelocytes # 0.5 Platelet Estimate SLIGHTLY INCREASED Plt Morphology Comment NORM RBC Morphology NOTED Acanthocytes (Spur) 1+ PT 12.0 INR 1.0 APTT 49.5 H VBG pH VBG pCO2 VBG Oxygen Liters/Min VBG pO2 VBG HCO3 VBG O2 Saturation VBG Base Excess Sodium Potassium Chloride Carbon Dioxide Anion Gap BUN Creatinine Estim Creat Clear Calc Estimated GFR POC Glucose Random Glucose Lactic Acid Lactic Acid Fup @ 2Hr Calcium Magnesium Total Bilirubin Direct Bilirubin AST ALT Alkaline Phosphatase Ammonia 171 H Total Creatine Kinase Troponin I High Sens Total Protein Albumin Lipase Urine Color Urine Appearance Urine pH Ur Specific [place] Urine Protein Urine Glucose (UA) Urine Ketones Urine Blood Urine Nitrite Ur Leukocyte Esterase Urine RBC Urine WBC Ur Squamous Epith Cells Amorphous Sediment Urine Bacteria Urine Mucus Urine Sperm Salicylates Acetaminophen Ethyl Alcohol Acetone, Qual 01/28/20 01/28/20 01/28/20 10:13 10:13 10:12 WBC RBC Hgb Hct MCV MCH MCHC RDW Plt Count MPV Absolute Nucleated RBC Nucleated RBC % (auto) Neutrophils % (Manual) Band Neutrophils % Lymphocytes % (Manual) Monocytes % (Manual) Eosinophils % (Manual) Metamyelocytes % Neutrophils # (Manual) Lymphocytes # (Manual) Monocytes # (Manual) Eosinophils # (Manual) Metamyelocytes # Platelet Estimate Plt Morphology Comment RBC Morphology Acanthocytes (Spur) PT INR APTT VBG pH VBG pCO2 VBG Oxygen Liters/Min VBG pO2 VBG HCO3 VBG O2 Saturation VBG Base Excess Sodium 130 L Potassium 4.8 Chloride 97 Carbon Dioxide < 5 L* Anion Gap TNP BUN 11 Creatinine 1.45 H Estim Creat Clear Calc 74.1 Estimated GFR 56 POC Glucose Random Glucose 260 H Lactic Acid 22.6 H* Lactic Acid Fup @ 2Hr Calcium 9.3 Magnesium 3.0 H Total Bilirubin < 0.2 Direct Bilirubin < 0.2 AST 20 ALT 18 Alkaline Phosphatase 146 H Ammonia Total Creatine Kinase 213 H Troponin I High Sens 7.2 Total Protein 7.4 Albumin 4.6 Lipase 20 Urine Color Urine Appearance Urine pH Ur Specific [place] Urine Protein Urine Glucose (UA) Urine Ketones Urine Blood Urine Nitrite Ur Leukocyte Esterase Urine RBC Urine WBC Ur Squamous Epith Cells Amorphous Sediment Urine Bacteria Urine Mucus Urine Sperm Salicylates < 5.0 L Acetaminophen < 1 Ethyl Alcohol Acetone, Qual Negative 01/28/20 01/28/20 01/28/20 10:12 10:12 09:50 WBC RBC Hgb Hct MCV MCH MCHC RDW Plt Count MPV Absolute Nucleated RBC Nucleated RBC % (auto) Neutrophils % (Manual) Band Neutrophils % Lymphocytes % (Manual) Monocytes % (Manual) Eosinophils % (Manual) Metamyelocytes % Neutrophils # (Manual) Lymphocytes # (Manual) Monocytes # (Manual) Eosinophils # (Manual) Metamyelocytes # Platelet Estimate Plt Morphology Comment RBC Morphology Acanthocytes (Spur) PT INR APTT VBG pH 6.58 L* VBG pCO2 44 VBG Oxygen Liters/Min 100% VBG pO2 155 VBG HCO3 4 VBG O2 Saturation 95.9 VBG Base Excess -35.5 Sodium Potassium Chloride Carbon Dioxide Anion Gap BUN Creatinine Estim Creat Clear Calc Estimated GFR POC Glucose 232 H Random Glucose Lactic Acid Lactic Acid Fup @ 2Hr Calcium Magnesium Total Bilirubin Direct Bilirubin AST ALT Alkaline Phosphatase Ammonia Total Creatine Kinase Troponin I High Sens Total Protein Albumin Lipase Urine Color Urine Appearance Urine pH Ur Specific [place] Urine Protein Urine Glucose (UA) Urine Ketones Urine Blood Urine Nitrite Ur Leukocyte Esterase Urine RBC Urine WBC Ur Squamous Epith Cells Amorphous Sediment Urine Bacteria Urine Mucus Urine Sperm Salicylates Acetaminophen Ethyl Alcohol < 10 Acetone, Qual Discharge Plan Discharge Patient Disposition: Home, Self-Care Referrals: Mariela Piña MD [Primary Care Provider] - Discharge Medications: Continued atorvastatin 80 mg Tablet 80 mg PO DAILY RF: 0 clonidine HCl 0.1 mg Tablet 0.1 mg PO BID RF: 0 prazosin 1 mg Capsule 4 mg PO BEDTIME RF: 0 quetiapine [Seroquel] 200 mg Tablet 200 mg PO BID RF: 0 hydroxyzine HCl 50 mg Tablet 50 mg PO TID PRN (Reason: Anxiety) RF: 0 phenytoin sodium extended [Dilantin Extended] 100 mg Capsule 200 mg PO BEDTIME RF: 0 clopidogrel 75 mg Tablet 75 mg PO DAILY RF: 0 aspirin 81 mg Tablet 81 mg PO DAILY RF: 0 cholecalciferol (vitamin D3) [Vitamin D3] 25 mcg (1,000 unit) Capsule 25 mcg PO DAILY RF: 0 levetiracetam [Keppra] 1,000 mg Tablet 1,000 mg PO BID RF: 0 Aptiom 800 mg Tablet 1,600 mg PO BID RF: 0 phenytoin sodium extended [Dilantin Extended] 100 mg Capsule 100 mg PO DAILY RF: 0 Discharge Orders: Discharge Order (Routine); Ordered 01/28/20 Ordered By: Roman Anderson Diet: regular diet Activity on Discharge: As tolerated Visit Report Forms: Patient Portal Discharge page Care Plan Goals: Take Keppra and all home meds as rx Health Concerns: Take home meds Plan of Treatment: f/up with PCP in 2 days
--- NOTE | 2020-01-28 20:27 | PC.NURSE ---
PT WANTING TO LEAVE. BLAINE VILCHIS AT BEDSIDE AND SPOKE TO PT . PT INSISTS ON LEAVING AGAINST MEDICAL ADVICE. INSTRUCTIONS GIVEN TO PT FOCUSING ON MEDICATIONS. PT'S MOTHER IN ER TO PICK HIM UP. PT DC'D IN MOTHER'S CAR AT THIS TIME.
[2020-01-28 21:44] LABS: Amphetamine Screen Urine Not Detected (Not Detect); Barbiturates, Urine Not Detected (Not Detect); Cocaine Screen Urine Not Detected (Not Detect); Opiate Screen Urine Not Detected (Not Detect); Phencyclidine Screen Urine Not Detected (Not Detect)
[2020-01-28 23:54] LABS: Benzodiazepines Screen Urine Not Detected (Not Detect); Cannabinoid Screen Urine POSITIVE (Not Detect)
[2020-02-03 12:01] LABS: Levetiracetam Keppra 30.2 mcg/mL (12.0-46.0)
== END 2020-01-28 20:24 | disposition left against medical advice (07) | DRG 53 ==
LOC: HO.ED 11:35 → HO.ICU 12:32
PROVIDERS: Admitting Provider Anesthesiology; Emergency Provider Emergency Medicine; PCP Student in an Organized Health Care Education/Training Program; Visit Provider Anesthesiology
DX: G40.909 Epilepsy, unspecified, not intractable, without status epilepticus (principal); F31.9 Bipolar disorder, unspecified; T42.6X6A Underdosing of other antiepileptic and sedative-hypnotic drugs, initial encounter; Y92.9 Unspecified place or not applicable; Z88.5 Allergy status to narcotic agent; I25.10 Atherosclerotic heart disease of native coronary artery without angina pectoris; I10 Essential (primary) hypertension; Z79.82 Long term (current) use of aspirin; Z79.899 Other long term (current) drug therapy
CPT/HCPCS: 36415; 70450; 71045; 80048; 80076; 80177; 80307; 80320; 81001; 82009; 82140; 82550; 82803; 82947; 83605; 83690; 83735; 84484; 85007; 85025; 85027; 85610; 85730; 87040; 93005; 93010; 94003; 94799; 96361; 96365; 96375; 96376; 99284; 99291; 99292; G0480; J1953; J2250

== ENCOUNTER 2020-02-01 16:07 | Emergency (ER) | payer MEDICAID, SELFPAY ==
[2020-02-01 16:33] VITALS: BP 156/82; PULSE 100; RESP 18; TEMP 36.4; O2SAT 100; BMI 28.6
[2020-02-01 18:13] VITALS: BP 156/82; PULSE 100; RESP 18; TEMP 36.4; O2SAT 100
--- NOTE | 2020-02-01 18:23 | ED_ITS ---
HPI - General Adult General Chief complaint: General Medical Stated complaint: SOB Time Seen by Provider: 02/01/20 18:14 Source: patient Mode of arrival: ambulatory History of Present Illness HPI narrative: 34-year-old male coming in for dizziness and ear ringing since earlier today. Patient states feeling much improved now however was still concerned that he has mild ringing. No dizziness at this point. No headache. Patient recently here for seizure and workup with a CT scan of the brain which was negative. Patient denies recent falls or head injury. Denies recent seizures. Patient did call his neurologist referred to the emergency department for evaluation MD complaint: dizziness and ear ringing Onset (ago): hour(s) (5 hours) Severity: mild Related Data Home Medications Medication Instructions Recorded Confirmed Aptiom 1,600 mg PO BID 01/28/20 01/28/20 aspirin 81 mg PO DAILY 01/28/20 01/28/20 atorvastatin 80 mg PO DAILY 01/28/20 01/28/20 cholecalciferol (vitamin D3) 25 mcg PO DAILY 01/28/20 01/28/20 [Vitamin D3] clonidine HCl 0.1 mg PO BID 01/28/20 01/28/20 clopidogrel 75 mg PO DAILY 01/28/20 01/28/20 hydroxyzine HCl 50 mg PO TID PRN 01/28/20 01/28/20 levetiracetam [Keppra] 1,000 mg PO BID 01/28/20 01/28/20 phenytoin sodium extended 100 mg PO DAILY 01/28/20 01/28/20 [Dilantin Extended] phenytoin sodium extended 200 mg PO BEDTIME 01/28/20 01/28/20 [Dilantin Extended] prazosin 4 mg PO BEDTIME 01/28/20 01/28/20 quetiapine [Seroquel] 200 mg PO BID 01/28/20 01/28/20 Allergies Allergy/AdvReac Type Severity Reaction Status Date / Time codeine [CODEINE] Allergy Unknown UNKNOWN Verified 01/28/20 09:48 procaine [From NOVOCAIN] Allergy Unknown UNKNOWN Verified 01/28/20 09:48 Review of Systems Review of Systems: Yes all other systems are reviewed and are negative Constitutional: Comments: Constitutional : No Weight loss, No Fever, No Chills, No Night Sweats, No Fatigue, No Malaise ENT/Mouth : No Hearing loss, No Ear Pain, No Nasal Congestion, No Sinus Pain, No Hoarseness, No sore throat, No Rhinorrhea, No Swallowing Difficulty Eyes: No Eye Pain, No Swelling, No Redness, No Foreign Body, No Discharge, No Vision Changes Cardiovascular : No Chest Pain, No SOB, No Dyspnea on Exertion, No Orthopnea, No Edema, No Palpitations Respiratory : No Cough, No Sputum, No Wheezing, No Smoke Exposure, No Dyspnea Gastrointestinal : No Nausea, No Vomiting, No Diarrhea, No Constipation, No abdominal Pain, No Hematochezia, No Melena Genitourinary : no irregular bleeding, No Dysuria, No Urinary Frequency, No Hematuria, No Urinary Incontinence, No Urgency, No Flank Pain, No Urinary Flow Changes, No Hesitancy Musculoskeletal : No joint pain, No Myalgias, No Joint Swelling Skin : No Skin Lesions, No rash Neuro : No Weakness, No Numbness, No Paresthesias, No Loss of Consciousness, No Dizziness, No Headache Psych : mild Anxiety/Panic, No Depression, No SI/HI/AH/VH, No Social Issues, Heme/Lymph: No Bruising, No Bleeding,No Lymphadenopathy Endocrine : No Polyuria, No Polydipsia, No Temperature Intolerance COUNTS INCLUDE 234 BEDS AT THE [facility] Past Medical History Attestation statement: The following information was validated with the patient. Medical History Bipolar 1 disorder Coronary artery disease Depression Hypertension Myocardial infarct, old Seizure Social History Social History Household Members: Family Housing: House Smoking Status: Current every day smoker Tobacco Type: Cigarette Second Hand Smoke Exposure: Yes Substance Use Type: Marijuana Advance Directives: No Advance Directives Information Provided: Yes service: No Current occupational status: unemployed Physical Exam Vital Signs and I&O and Narrative: Vital Signs and I&O: Vital Signs Temp 97.5 F 02/01/20 18:13 Pulse 100 02/01/20 18:13 Resp 18 02/01/20 18:13 BP 156/82 H 02/01/20 18:13 Pulse Ox 100 02/01/20 18:13 Intake & Output 02/01/20 02/01/20 02/02/20 06:59 18:59 06:59 Weight 78 kg Body Mass Index 28.6 reviewed Appearance: Alert. Oriented X3. No acute distress. Eyes: Pupils equal, round and reactive to light. ENT: Pharynx normal. normal TM. No erythema bilaterally. No ruptured TM Neck: Normal inspection. Neck supple. CVS: Normal heart rate and rhythm. Pulses normal. Respiratory: No respiratory distress. Breath sounds normal. Abdomen: Soft and nontender. Skin: Skin warm and dry. Normal skin color. Normal skin turgor. Extremities: No lower extremity edema. No lower extremity edema. Neuro: Oriented X 3. No motor deficit. No sensory deficit. bilateral lateral nystagmus. reflexes intact. equal supervisor precision optical elements no slurred speech Course Course Course Narrative: patient states symptoms almost resolved the time he came to the ER. Patient with recent CT scan of the brain which was negative. Patient with a history of vertigo however now with ringing x-ray suspicious for Meniere's disease. Will treat referred to Neurology for follow-up patient ambulatory without discomfort or falls Discharge Plan Discharge Clinical Impression: Meniere's disease Patient Disposition: Home, Self-Care Instructions: Meniere Disease (ED) Additional Instructions: Thank you for visiting the emergency department today. If your symptoms worsen or do not resolve completely please return to the emergency department immediately or call 911. if he have any questions please call your primary care physician Prescriptions: No Action atorvastatin 80 mg Tablet 80 mg PO DAILY RF: 0 clonidine HCl 0.1 mg Tablet 0.1 mg PO BID RF: 0 prazosin 1 mg Capsule 4 mg PO BEDTIME RF: 0 quetiapine [Seroquel] 200 mg Tablet 200 mg PO BID RF: 0 hydroxyzine HCl 50 mg Tablet 50 mg PO TID PRN (Reason: Anxiety) RF: 0 phenytoin sodium extended [Dilantin Extended] 100 mg Capsule 200 mg PO BEDTIME RF: 0 clopidogrel 75 mg Tablet 75 mg PO DAILY RF: 0 aspirin 81 mg Tablet 81 mg PO DAILY RF: 0 cholecalciferol (vitamin D3) [Vitamin D3] 25 mcg (1,000 unit) Capsule 25 mcg PO DAILY RF: 0 levetiracetam [Keppra] 1,000 mg Tablet 1,000 mg PO BID RF: 0 Aptiom 800 mg Tablet 1,600 mg PO BID RF: 0 phenytoin sodium extended [Dilantin Extended] 100 mg Capsule 100 mg PO DAILY RF: 0 Referrals: Fidelina Golden MD [Physician] - 2 days Discharge Date/Time: 02/01/20 19:04
== END 2020-02-01 19:04 | disposition home or self-care (01) ==
LOC: HO.ED 18:31
PROVIDERS: Emergency Provider Emergency Medicine; PCP Student in an Organized Health Care Education/Training Program
DX: H81.03 Meniere's disease, bilateral (principal); I10 Essential (primary) hypertension; I25.2 Old myocardial infarction; F17.200 Nicotine dependence, unspecified, uncomplicated; Z79.899 Other long term (current) drug therapy
CPT/HCPCS: 99283; 99284

== ENCOUNTER 2020-02-08 14:41 | Outpatient (REF) | payer MEDICAID, SELFPAY ==
[2020-02-08 15:49] LABS: Anion Gap 11 (12-20); Carbon Dioxide 26 mmol/L (22-29); Chloride 99 mmol/L (96-108); Potassium 4.3 mmol/l (3.3-5.1); Sodium 132 mmol/L (135-145)
[2020-02-13 16:57] LABS: Levetiracetam Keppra 14.4 mcg/mL (12.0-46.0)
== END 2020-02-08 14:42 | disposition home or self-care (01) ==
LOC: HO.LAB 14:41
PROVIDERS: PCP Student in an Organized Health Care Education/Training Program; Visit Provider Psychiatry & Neurology Neurology
DX: G40.909 Epilepsy, unspecified, not intractable, without status epilepticus (principal)
CPT/HCPCS: 80051; 80177; 80185

== ENCOUNTER → 2020-05-14 14:05 | Outpatient (BNVA) | payer MEDICAID, SELFPAY | PROVIDERS: PCP Student in an Organized Health Care Education/Training Program; Visit Provider Internal Medicine Cardiovascular Disease | DX: I25.10 Atherosclerotic heart disease of native coronary artery without angina pectoris (principal); E78.5 Hyperlipidemia, unspecified | CPT/HCPCS: 99212 ==

== ENCOUNTER 2020-07-26 13:01 | Outpatient (REF) | payer MEDICAID, SELFPAY | END 2020-07-26 13:02 | disposition home or self-care (01) | LOC: HO.NEURO 13:01 | PROVIDERS: Visit Provider Psychiatry & Neurology Neurology | DX: Z13.89 Encounter for screening for other disorder (principal) ==

== ENCOUNTER 2020-10-16 11:08 | Emergency (ER) | payer MEDICAID, SELFPAY ==
--- NOTE | ~2020-10-16 | XR_ITS ---
EXAMINATION: XR HAND WRIST, RIGHT CLINICAL INFORMATION: Pain thumb. COMPARISON: None TECHNIQUE: The right hand and wrist are imaged in large [id number] images for 3 views with additional navicular view of the wrist included for a total of 4 views. FINDINGS: There is no acute or healing fracture, dislocation, destructive process. Bony mineralization is normal. There is borderline negative ulnar variance. The carpus shows no joint narrowing or erosive change or chondrocalcinosis. The first metacarpal has small exostosis at the lateral base and a small subchondral cyst 0.4 cm. There may be old healed fracture in this area. There is no joint narrowing or erosive change or destructive process. No periostitis. The MCP and interphalangeal joints are unremarkable. XR/XR hand wrist RT IMPRESSION: 1. No acute or healing fracture, dislocation, or arthropathy. 2. Probable old posttraumatic changes base first metacarpal.
[2020-10-16 11:21] VITALS: BP 142/87; PULSE 79; RESP 18; TEMP 36.7; O2SAT 99
--- NOTE | 2020-10-16 12:22 | ED.EXTPRO ---
HPI - Extremity Problem General Chief complaint: Extremity Injury, Upper Stated complaint: thumb injury Time Seen by Provider: 10/16/20 12:22 History of Present Illness HPI Narrative: Patient complains of right thumb pain in the middle of the finger when he jammed it into the floor when he fell, no other injury in this fall, no numbness weakness or tingling no headache no neck pain no back pain Related Data Home Medications Medication Instructions Recorded Confirmed Aptiom 1,600 mg PO BID 01/28/20 05/14/20 aspirin 81 mg PO DAILY 01/28/20 05/14/20 atorvastatin 80 mg PO DAILY 01/28/20 05/14/20 cholecalciferol (vitamin D3) 25 mcg PO DAILY 01/28/20 05/14/20 [Vitamin D3] clonidine HCl 0.1 mg PO BID 01/28/20 05/14/20 clopidogrel 75 mg PO DAILY 01/28/20 05/14/20 hydroxyzine HCl 50 mg PO TID PRN 01/28/20 05/14/20 levetiracetam [Keppra] 1,000 mg PO BID 01/28/20 05/14/20 phenytoin sodium extended 100 mg PO DAILY 01/28/20 05/14/20 [Dilantin Extended] phenytoin sodium extended 200 mg PO BEDTIME 01/28/20 05/14/20 [Dilantin Extended] prazosin 4 mg PO BEDTIME 01/28/20 05/14/20 quetiapine [Seroquel] 200 mg PO BID 01/28/20 05/14/20 Allergies Allergy/AdvReac Type Severity Reaction Status Date / Time codeine [CODEINE] Allergy Unknown UNKNOWN Verified 01/28/20 09:48 procaine [From NOVOCAIN] Allergy Unknown UNKNOWN Verified 01/28/20 09:48 Review of Systems Review of Systems: Review of systems is right thumb pain positive Negatives are no dizziness no weakness no fainting no headache no neck pain no numbness weakness or tingling no skin rash no laceration Yes all other systems are reviewed and are negative [facility] Past Medical History Source: nursing notes reviewed Medical History (Updated 10/17/20 @ 00:00 by Gino Campos) Bipolar 1 disorder Coronary artery disease Depression Hyperlipidemia Hypertension Leukocytosis Myocardial infarct, old Seizure Surgical History (Updated 05/14/20 @ 14:47 by Dany Coreas MD) Stented coronary artery Social History Social History Household Members: Family Household Members Other:: MOM AND DAD Housing: House Cigarettes Per Day: 7 Second Hand Smoke Exposure: Yes Substance Use Type: Marijuana Advance Directives: No Advance Directives Information Provided: No service: No Current occupational status: unemployed Physical Exam Vital Signs: Vital Signs: Last Vital Signs Temp 98.1 F 10/16/20 11:21 Pulse 79 10/16/20 11:21 Resp 18 10/16/20 11:21 BP 142/87 H 10/16/20 11:21 Pulse Ox 99 10/16/20 11:21 Body Mass Index 30.0 General appearance no acute distress Head is normocephalic atraumatic Neck is supple Respiratory no distress Extremities the right thumb has tenderness at the PIP joint with some mild swelling, there is full range of motion but it is uncomfortable, there is no tenderness over the ulnar aspect of the thumb no tenderness over the ulnar collateral ligament no ligamentous laxity no MCP tenderness no deformity and neurovascular intact distal in all tendon function on flexion and extension is intact, no laceration Other extremities normal Neuro no gross motor or sensory Course Course Course Narrative: X-ray of the right hand wrist and thumb were normal Exam is not consistent with ulnar collateral ligament injury, no fracture and patient is given a splint for comfort and will follow with Ortho if needed and is discharged Discharge Plan Discharge Clinical Impression: Sprain of right thumb Patient Disposition: Home, Self-Care Additional Instructions: X-ray did not show any broken bone We gave a splint for comfort, usually a sprained thumb will get better within a week If not improving follow with orthopedist Return any concerns Prescriptions: No Action atorvastatin 80 mg Tablet 80 mg PO DAILY RF: 0 clonidine HCl 0.1 mg Tablet 0.1 mg PO BID RF: 0 prazosin 1 mg Capsule 4 mg PO BEDTIME RF: 0 quetiapine [Seroquel] 200 mg Tablet 200 mg PO BID RF: 0 hydroxyzine HCl 50 mg Tablet 50 mg PO TID PRN (Reason: Anxiety) RF: 0 phenytoin sodium extended [Dilantin Extended] 100 mg Capsule 200 mg PO BEDTIME RF: 0 clopidogrel 75 mg Tablet 75 mg PO DAILY RF: 0 aspirin 81 mg Tablet 81 mg PO DAILY RF: 0 cholecalciferol (vitamin D3) [Vitamin D3] 25 mcg (1,000 unit) Capsule 25 mcg PO DAILY RF: 0 levetiracetam [Keppra] 1,000 mg Tablet 1,000 mg PO BID RF: 0 Aptiom 800 mg Tablet 1,600 mg PO BID RF: 0 phenytoin sodium extended [Dilantin Extended] 100 mg Capsule 100 mg PO DAILY RF: 0 Referrals: Naz Baird MD [Physician] - 2 days (Finger sprain) Interventions: ED Discharge Assessment Last Done: 10/16/20 12:41 Discharge Date/Time: 10/16/20 12:41
--- NOTE | 2020-10-16 12:40 | PC.NURSE ---
this PCT placed a finger splint on the right thumb.
== END 2020-10-16 12:41 | disposition home or self-care (01) ==
LOC: HO.ED 12:31
PROVIDERS: Emergency Provider Emergency Medicine Emergency Medical Services; PCP Student in an Organized Health Care Education/Training Program
DX: S63.601A Unspecified sprain of right thumb, initial encounter (principal); W19.XXXA Unspecified fall, initial encounter; Y93.9 Activity, unspecified; Y92.9 Unspecified place or not applicable; Y99.9 Unspecified external cause status
CPT/HCPCS: 29130; 73110; 73130; 99283

== ENCOUNTER 2021-01-01 13:14 | Outpatient (REF) | payer MEDICAID, SELFPAY | END 2021-01-01 13:15 | disposition home or self-care (01) | LOC: HO.NEURO 13:14 | PROVIDERS: Visit Provider Psychiatry & Neurology Neurology | DX: Z13.89 Encounter for screening for other disorder (principal) ==

== ENCOUNTER 2021-02-14 12:54 | Outpatient (RCR) | payer MEDICAID, SELFPAY ==
[2021-02-14 12:56] VITALS: BP 142/98; PULSE 75; O2SAT 97
== END 2021-02-27 13:30 | disposition home or self-care (01) ==
LOC: HO.PTCHIC 12:54
PROVIDERS: PCP Student in an Organized Health Care Education/Training Program; Visit Provider Student in an Organized Health Care Education/Training Program
DX: H81.13 Benign paroxysmal vertigo, bilateral (principal)
CPT/HCPCS: 97110; 97162; 97163

== ENCOUNTER 2021-05-14 12:58 | Outpatient (REF) | payer MEDICAID, SELFPAY ==
--- NOTE | 2021-05-14 13:04 | EEG_ITS ---
The waking background activity consists of a symmetrical 9 hertz posterior alpha frequency, intermixed anteriorly with low-voltage fast frequencies. Drowsiness is characterized with diffuse theta slowing. During sleep symmetrical frontal central sleep spindles, vertex sharp transients, and K complexes are seen. In deeper stages of sleep, there is generalized delta. Arousals are unremarkable. The patient remains asymptomatic, although he complains of a few episodes of leg twitching and right arm twitching. No paroxysmal discharges seen. IMPRESSION: This 24-hour ambulatory EEG is within normal limits including where the arm and leg are noted to be twitching. MD CORKY Palacio/BLAIR / [id number]
== END 2021-05-14 12:59 | disposition home or self-care (01) ==
LOC: HO.NEURO 12:58
PROVIDERS: Visit Provider Psychiatry & Neurology Neurology
DX: G40.909 Epilepsy, unspecified, not intractable, without status epilepticus (principal)
CPT/HCPCS: 95708; 95957

== ENCOUNTER 2022-08-04 13:43 | Outpatient (REF) | payer MEDICAID, SELFPAY ==
[2022-08-04 15:01] LABS: Phenytoin Dilantin 10.8 ug/mL (10.0-20.0)
[2022-08-07 18:38] LABS: Levetiracetam Keppra 15.9 mcg/mL (6.0-46.0)
== END 2022-08-04 13:44 | disposition home or self-care (01) ==
LOC: HO.LAB 13:43
PROVIDERS: Visit Provider Psychiatry & Neurology Neurology
DX: G40.909 Epilepsy, unspecified, not intractable, without status epilepticus (principal)
CPT/HCPCS: 36415; 80177; 80185

== ENCOUNTER 2023-10-20 14:27 | Outpatient (REF) | payer MEDICAID, SELFPAY ==
[2023-10-20 16:07] LABS: Phenytoin Dilantin 14.9 ug/mL (10.0-20.0)
[2023-10-24 16:12] LABS: Levetiracetam Keppra 14.7 mcg/mL (6.0-46.0)
== END 2023-10-20 14:28 | disposition home or self-care (01) ==
LOC: HO.LAB 14:27
PROVIDERS: PCP Student in an Organized Health Care Education/Training Program; Visit Provider Psychiatry & Neurology Neurology
DX: G40.909 Epilepsy, unspecified, not intractable, without status epilepticus (principal)
CPT/HCPCS: 36415; 80177; 80185

== ENCOUNTER 2024-02-15 15:53 | Emergency (ER) | payer MEDICAID, SELFPAY ==
--- NOTE | ~2024-02-15 | XR_ITS ---
EXAMINATION: Right hand series. Right forearm series. CLINICAL INFORMATION: Pain injury COMPARISON: X-rays of the right hand September 2020 TECHNIQUE: 3 views of the right hand. 3 views of the right forearm FINDINGS: Right hand: There is deformity of the proximal 1st metacarpal unchanged compatible with old fracture. This results in some incongruity of the articular surface at the 1st carpometacarpal joint. However overall unchanged. The remaining bones joints and soft tissues are unremarkable. No fracture. Right forearm the bone surrounding soft tissues are normal. Elbow joint and wrist unremarkable except for the aforementioned abnormality of the proximal 1st metacarpal XR/XR forearm RT 2V IMPRESSION: No acute abnormality. Deformity of the proximal 1st metacarpal compatible with old fracture unchanged compared with September 2020. Electronically signed by: Derick De La Rosa MD 02/15/2024 05:21 PM EDT RP
--- NOTE | ~2024-02-15 | XR_ITS ---
EXAMINATION: Right hand series. Right forearm series. CLINICAL INFORMATION: Pain injury COMPARISON: X-rays of the right hand September 2020 TECHNIQUE: 3 views of the right hand. 3 views of the right forearm FINDINGS: Right hand: There is deformity of the proximal 1st metacarpal unchanged compatible with old fracture. This results in some incongruity of the articular surface at the 1st carpometacarpal joint. However overall unchanged. The remaining bones joints and soft tissues are unremarkable. No fracture. Right forearm the bone surrounding soft tissues are normal. Elbow joint and wrist unremarkable except for the aforementioned abnormality of the proximal 1st metacarpal XR/XR hand wrist RT IMPRESSION: No acute abnormality. Deformity of the proximal 1st metacarpal compatible with old fracture unchanged compared with September 2020. Electronically signed by: Derick De La Rosa MD 02/15/2024 05:21 PM EDT
[2024-02-15 16:11] VITALS: BP 158/101; PULSE 92; RESP 16; TEMP 36.6; O2SAT 97; BMI 26.8
--- NOTE | 2024-02-15 16:14 | ED_ITS ---
HPI - Extremity Problem General Chief complaint: Extremity Injury, Upper Stated complaint: right wrist inj Time Seen by Provider: 02/15/24 17:18 Source: patient Mode of arrival: ambulatory Limitations: no limitations History of Present Illness ED Provider: rikki HPI Narrative: Patient is a 38-year-old male PMH of seizure disorder, bipolar do, HTN, and h/o CAD s/p two stents, on Plavix and ASA presenting for right hand/wrist pain and swelling. He reports with his mom, both state he was working on his bike in the garage and suddenly the wrench broke and slammed into his hand and wrist area, he also hit his forearm on the pole/bar of bike as well. Reports some numbness to tip of fingers, along dorsal portion of the thumb, negative for any tingling or changes in temperature. Fingers have full ROM, hand/wrist limited due to pain and swelling. MD Complaint: extremity pain, extremity swelling, joint swelling and joint pain Onset (ago): hour(s) Location: right Relieving factors: immobilization Related Data Home Medications ?Medication ?Instructions ?Recorded ?Confirmed aspirin 81 mg tablet 81 mg PO DAILY 01/28/20 05/14/20 atorvastatin 80 mg tablet 80 mg PO DAILY 01/28/20 05/14/20 cholecalciferol (vitamin D3) 25 25 mcg PO DAILY 01/28/20 05/14/20 mcg (1,000 unit) capsule (Vitamin D3) clonidine HCl 0.1 mg tablet 0.1 mg PO BID 01/28/20 05/14/20 clopidogrel 75 mg tablet 75 mg PO DAILY 01/28/20 05/14/20 eslicarbazepine 800 mg tablet 1,600 mg PO BID 01/28/20 05/14/20 (Aptiom) hydroxyzine HCl 50 mg tablet 50 mg PO TID PRN Anxiety 01/28/20 05/14/20 levetiracetam 1,000 mg tablet 1,000 mg PO BID 01/28/20 05/14/20 (Keppra) phenytoin sodium extended 100 mg 100 mg PO DAILY 01/28/20 05/14/20 capsule (Dilantin Extended) phenytoin sodium extended 100 mg 200 mg PO BEDTIME 01/28/20 05/14/20 capsule (Dilantin Extended) prazosin 1 mg capsule 4 mg PO BEDTIME 01/28/20 05/14/20 quetiapine 200 mg tablet (Seroquel) 200 mg PO BID 01/28/20 05/14/20 Previous Rx's ?Medication ?Instructions ?Recorded diclofenac sodium 1 % topical gel 2 g topical QID #100 grams 02/15/24 Allergies Allergy/AdvReac Type Severity Reaction Status Date / Time codeine [CODEINE] Allergy Unknown UNKNOWN Verified 02/15/24 16:13 procaine [From NOVOCAIN] Allergy Unknown UNKNOWN Verified 02/15/24 16:13 Review of Systems Review of Systems: as per hpi Yes all other systems are reviewed and are negative Constitutional: Constitutional: Reports as per HPI [facility] Past Medical History Medical History (Updated 02/15/24 @ 18:22 by Josie Hughes NP) Hyperlipidemia Myocardial infarct, old Leukocytosis Bipolar 1 disorder Hypertension Coronary artery disease Depression Seizure Surgical History (Updated 05/14/20 @ 14:47 by Dany Coreas MD) Stented coronary artery Social History Social History Household Members: Family Household Members Other:: MOM AND DAD Housing: House Cigarettes Per Day: 7 Second Hand Smoke Exposure: Yes Substance Use Type: Marijuana Advance Directives: No Advance Directives Information Provided: No service: No Current occupational status: unemployed Physical Exam Vital Signs: Vital Signs: Last Vital Signs Temp 97.8 F 02/15/24 16:11 Pulse 92 02/15/24 16:11 Resp 16 02/15/24 16:11 BP 158/101 H 02/15/24 16:11 Pulse Ox 97 02/15/24 16:11 O2 Del Method Room Air 02/15/24 16:11 BMI result Body Mass Index 26.8 Vital signs have been reviewed and appear to be correct. Blood pressure elevated. Heart rate normal. Respiratory rate normal. Temperature normal. Oxygen saturation normal. Appearance: Alert. Oriented X3. No acute distress. Head: normocephalic, atraumatic. Eyes: Pupils equal, round and reactive to light. ENT: Pharynx normal. No tonsillar swelling or exudate. Neck: Normal inspection. Neck supple. CVS: Normal heart rate and rhythm. Pulses normal. Respiratory: No respiratory distress. Breath sounds normal. Abdomen: Soft and nontender. +BS x4 Skin: Skin warm and dry. Normal skin color. Normal skin turgor. No rashes. Extremities: No lower extremity edema. Right dorsal hand, thumb, distal radius with mild swelling, limited ROM wrist due to pain, full ROM all fingers, capillary refill <3 seconds. Neuro/psych: Oriented X 3. No motor deficit. No sensory deficit. CN II-XII intact. Normal speech and cognition. Const: General: cooperative, healthy appearing and no acute distress Orientation/consciousness: oriented to person, oriented to place, oriented to time and patient oriented x3 Limitations: no limitations HEENT: Head: Yes normocephalic and Yes atraumatic Ears: external ears normal General nose exam: Normal external nose present Face and sinus: Yes face symmetric Mouth: oropharynx normal and moist mucous membranes Throat: Yes uvula midline Eyes: Pupils: Equal, round and reactive pupils present Neck: Neck: Yes normal visual inspection and Yes supple Resp: Effort & Inspection: normal respiratory effort and able to speak in complete sentences Auscultation: clear to auscultation bilaterally Cardio: Rate: regular rate Rhythm: regular rhythm Heart sounds: S1 normal heart sound present and S2 normal heart sound present GI: Palpation (GI): Soft to palpation and nontender Auscultation: normoactive bowel sounds : General: Yes no CVA tenderness Back/Spine/Pelvis: Back: no CVA tenderness Skin: General skin exam: elasticity normal and turgor normal Neuro: General: oriented to person, oriented to place, oriented to time, patient oriented x3, moves all extremities, no focal motor deficits and CN's II- XI intact bilaterally Cranial nerves: Yes Equal, round and reactive pupils present Cognition (Neuro): normal cognition Extrem: General: Yes normal exam except as noted Right upper extremity: wrist Details: tenderness, swelling, abnormal ROM, ecchymosis and normal vascular exam and Extremity exam: right hand Left upper extremity: edema, wrist and hand Details: normal capillary refill, neuromotor exam normal, tenderness, normal ROM of fingers, swelling and ecchymosis Psych: Mental Status: mental status grossly normal Affect: normal affect Thought process: Normal thought process present Course Course Course Narrative: RME performed by Raven Bennett PA-C. Patient is a 38 year old assigned male at presenting to the emergency department with a right wrist and hand injury. Patient states he was using his wrench when it snapped and hit his right hand and forearm. Detailed physical exam and review of systems are deferred to the reel system operator. Imaging ordered. Patient placed back in the waiting room pending room availability and results. Medications Administered Discontinued Medications Generic Name Dose Route Start Last Admin Trade Name Chelsea PRN Reason Stop Dose Admin Acetaminophen 975 mg 02/15/24 17:19 02/15/24 17:53 Acetaminophen 325 Mg Tablet PO 02/15/24 17:20 975 mg ONCE ONE Administration Ibuprofen 600 mg 02/15/24 17:19 02/15/24 17:57 Ibuprofen 600 Mg Tablet PO 02/15/24 17:20 Not Given ONCE ONE Medical Decision Making Medical Decision Making MDM Narrative: Patient is a 38-year-old male PMH of seizure disorder, bipolar do, HTN, and h/o CAD s/p two stents, presenting for right hand/wrist pain and swelling. ROM intact to digits of r hand, limited at wrist due to pain, cap refill <3 seconds. Swelling and bruising appreciated over the dorsal side of the right thumb and along the wrist and up onto the forearm. On exam patient is awake, A+Ox3, VS WNL, afebrile, normal neurological exam without focal deficits, physical exam findings as above. Given reported symptoms and physical exam findings, initial differential includes fracture, contusion, soft tissue injury, sprain/strain. N o evidence of compartment syndrome. X-rays of forearm, wrist and hand notable for no acute abnormality. My interpretation is in agreement with the radiologist's interpretation. Patient updated on results and all questions answered. Provided with a removable wrist splint for support. Advised patient to ice the area for 10-15 minutes at a time several times daily, elevate while at rest, use Tylenol as needed for pain. Will send prescription for diclofenac gel as patient can not take p.o. NSAIDs. Return precautions discussed at bedside. Patient verbalized understanding of and agreement with plan. Differential Diagnosis Differential Diagnoses: The differential diagnosis associated with the presentation includes fracture, contusion, soft tissue injury, sprain/strain, compartment syndrome Independent Interpretation I performed an independent interpretation of an: Plain X-Ray Interpretation: No acute fracture right forearm, wrist, hand. Radiology Impression Discussion of test interpretation with radiology: I have reviewed the radiologist's reading. Radiologist Impression: XR/XR hand wrist RT IMPRESSION: No acute abnormality. Deformity of the proximal 1st metacarpal compatible with old fracture unchanged compared with September 2020. External Record Review External record reviewed: Inpatient record, Office record and Outpatient record Prescription Management I considered prescription management with: Pain Medication Discharge Plan Discharge Clinical Impression: Contusion of right wrist, initial encounter Patient Disposition: Home, Self-Care Instructions: Wrist Injury (ED), Contusion in Adults (ED), R.I.C.E. Treatment (ED) Additional Instructions: You have been evaluated in the emergency department today for right arm pain. Your evaluation did not find evidence of medical conditions requiring emergent intervention at this time. Your xrays did not show evidence of fracture. We have provided a splint for you to use while your arm heals. Please rest, ice, and elevate your arm, and resume normal activities as tolerated. We recommend you take 650mg Tylenol every 6 hours as needed for pain. You are being prescribed diclofenac gel which you can apply topically for pain. Please schedule an appointment for follow-up with your primary care provider this week. Return to the emergency department if you experience worsening pain, numbness, tingling, change of color in your arm/hand/fingers, or any other concerning symptoms. Prescriptions: New diclofenac sodium 1 % gel 2 g topical QID Qty: 100 0RF Rx Instructions: apply to single elbow, wrist or hand; for hand includes palm/fingers/back of hand No Action atorvastatin 80 mg Tablet 80 mg PO DAILY clonidine HCl 0.1 mg Tablet 0.1 mg PO BID prazosin 1 mg Capsule 4 mg PO BEDTIME quetiapine [Seroquel] 200 mg Tablet 200 mg PO BID hydroxyzine HCl 50 mg Tablet 50 mg PO TID PRN (Reason: Anxiety) phenytoin sodium extended [Dilantin Extended] 100 mg Capsule 200 mg PO BEDTIME clopidogrel 75 mg Tablet 75 mg PO DAILY aspirin 81 mg Tablet 81 mg PO DAILY cholecalciferol (vitamin D3) [Vitamin D3] 25 mcg (1,000 unit) Capsule 25 mcg PO DAILY levetiracetam [Keppra] 1,000 mg Tablet 1,000 mg PO BID Aptiom 800 mg Tablet 1,600 mg PO BID phenytoin sodium extended [Dilantin Extended] 100 mg Capsule 100 mg PO DAILY Print Language: Pashto
[2024-02-15] MEDS: Acetaminophen 325 MG TABLET 975 MG PO (17:53)
[2024-02-15 18:39] VITALS: BP 158/101; PULSE 92; RESP 16; TEMP 36.6; O2SAT 97
== END 2024-02-15 18:40 | disposition home or self-care (01) ==
PROVIDERS: Emergency Provider Emergency Medicine Emergency Medical Services; PCP Student in an Organized Health Care Education/Training Program
DX: S60.211A Contusion of right wrist, initial encounter (principal); W22.8XXA Striking against or struck by other objects, initial encounter; Y93.89 Activity, other specified; Y92.89 Other specified places as the place of occurrence of the external cause; Y99.9 Unspecified external cause status; M79.641 Pain in right hand; I10 Essential (primary) hypertension; I25.2 Old myocardial infarction; E78.5 Hyperlipidemia, unspecified
CPT/HCPCS: 73090; 73110; 73130; 99283

== ENCOUNTER 2024-07-26 14:47 | Emergency (ER) | payer MEDICAID, SELFPAY ==
--- NOTE | ~2024-07-26 | XR_ITS ---
EXAMINATION: XR FINGER, LEFT CLINICAL INFORMATION: laceration COMPARISON: None available. TECHNIQUE: Three views of the left thumb. FINDINGS: Soft tissue laceration to the distal thumb. No radiopaque foreign body. Bony structures are intact. No fracture. Alignment is anatomic. Joint spaces are maintained. XR/XR finger LT min 2V IMPRESSION: No fracture or radiopaque foreign body. Electronically signed by: Darvin Martinez MD 07/26/2024 03:59 PM EDT
[2024-07-26 15:27] VITALS: BP 137/86; PULSE 88; RESP 16; TEMP 37; O2SAT 98; BMI 26.9
--- NOTE | 2024-07-26 15:35 | ED_ITS ---
HPI - Wound/Laceration General Chief Complaint: Wound/Laceration Stated Complaint: L thumb lac Related Data Home Medications ?Medication ?Instructions ?Recorded ?Confirmed aspirin 81 mg tablet 81 mg PO DAILY 01/28/20 05/14/20 atorvastatin 80 mg tablet 80 mg PO DAILY 01/28/20 05/14/20 cholecalciferol (vitamin D3) 25 25 mcg PO DAILY 01/28/20 05/14/20 mcg (1,000 unit) capsule (Vitamin D3) clonidine HCl 0.1 mg tablet 0.1 mg PO BID 01/28/20 05/14/20 clopidogrel 75 mg tablet 75 mg PO DAILY 01/28/20 05/14/20 eslicarbazepine 800 mg tablet 1,600 mg PO BID 01/28/20 05/14/20 (Aptiom) hydroxyzine HCl 50 mg tablet 50 mg PO TID PRN Anxiety 01/28/20 05/14/20 levetiracetam 1,000 mg tablet 1,000 mg PO BID 01/28/20 05/14/20 (Keppra) phenytoin sodium extended 100 mg 100 mg PO DAILY 01/28/20 05/14/20 capsule (Dilantin Extended) phenytoin sodium extended 100 mg 200 mg PO BEDTIME 01/28/20 05/14/20 capsule (Dilantin Extended) prazosin 1 mg capsule 4 mg PO BEDTIME 01/28/20 05/14/20 quetiapine 200 mg tablet (Seroquel) 200 mg PO BID 01/28/20 05/14/20 Previous Rx's ?Medication ?Instructions ?Recorded diclofenac sodium 1 % topical gel 2 g topical QID #100 grams 02/15/24 Allergies Allergy/AdvReac Type Severity Reaction Status Date / Time procaine [From NOVOCAIN] Allergy Severe Seizure Verified 07/26/24 15:31 codeine [CODEINE] Allergy Unknown UNKNOWN Verified 07/26/24 15:31 [facility] Past Medical History Medical History (Updated 07/27/24 @ 18:44 by BLAINE Taylor) Hyperlipidemia Myocardial infarct, old Leukocytosis Bipolar 1 disorder Hypertension Coronary artery disease Depression Seizure Surgical History (Updated 05/14/20 @ 14:47 by Dany Coreas MD) Stented coronary artery Social History Social History Household Members: Family Household Members Other:: MOM AND DAD Housing: House Cigarettes Per Day: 7 Second Hand Smoke Exposure: Yes Substance Use Type: Marijuana Advance Directives: No Advance Directives Information Provided: No service: No Current occupational status: unemployed Physical Exam Vital Signs: Vital Signs: Last Vital Signs Temp 98.6 F 07/26/24 15:27 Pulse 88 07/26/24 15:27 Resp 16 07/26/24 15:27 BP 137/86 07/26/24 15:27 Pulse Ox 98 07/26/24 15:27 O2 Del Method Room Air 07/26/24 15:27 BMI result Body Mass Index 26.9 Course Course Course Narrative: This is an RME: Additional HPI, ROS, PE not included below will be deferred to primary provider. RME assessment and note performed by: Ban Lizama PA-C This is a 38-year-old male who presents emergency department with complaints of left thumb laceration. Patient was wood carving in the chisel slipped and lacerated his left thumb. 2cm partial thickness laceration noted. Laceration likely requiring suture repair, will obtain x-ray to rule out foreign body/bony involvement. Unsure of last tetanus. Plan: xrays, tdap Reevaluation(s) Reevaluation #1: Patient left without completing treatment. Discharge Plan Discharge Clinical Impression: Laceration Patient Disposition: Left W/O Completing Treatment Prescriptions: No Action atorvastatin 80 mg Tablet 80 mg PO DAILY clonidine HCl 0.1 mg Tablet 0.1 mg PO BID prazosin 1 mg Capsule 4 mg PO BEDTIME quetiapine [Seroquel] 200 mg Tablet 200 mg PO BID hydroxyzine HCl 50 mg Tablet 50 mg PO TID PRN (Reason: Anxiety) phenytoin sodium extended [Dilantin Extended] 100 mg Capsule 200 mg PO BEDTIME clopidogrel 75 mg Tablet 75 mg PO DAILY aspirin 81 mg Tablet 81 mg PO DAILY cholecalciferol (vitamin D3) [Vitamin D3] 25 mcg (1,000 unit) Capsule 25 mcg PO DAILY levetiracetam [Keppra] 1,000 mg Tablet 1,000 mg PO BID Aptiom 800 mg Tablet 1,600 mg PO BID phenytoin sodium extended [Dilantin Extended] 100 mg Capsule 100 mg PO DAILY diclofenac sodium 1 % gel 2 g topical QID Qty: 100 0RF Rx Instructions: apply to single elbow, wrist or hand; for hand includes palm/fingers/back of hand Discharge Date/Time: 07/26/24 19:18
== END 2024-07-26 19:18 | disposition left against medical advice (07) ==
LOC: HO.ED 19:19
PROVIDERS: Emergency Provider Emergency Medicine; PCP Student in an Organized Health Care Education/Training Program
DX: S61.012A Laceration without foreign body of left thumb without damage to nail, initial encounter (principal); W31.2XXA Contact with powered woodworking and forming machines, initial encounter; Y93.89 Activity, other specified; Y92.9 Unspecified place or not applicable; Y99.9 Unspecified external cause status
CPT/HCPCS: 73140; 99281; 99283

== ENCOUNTER → 2024-07-26 15:35 | Outpatient (BNV) | payer MEDICAID, SELFPAY | PROVIDERS: PCP Student in an Organized Health Care Education/Training Program; Visit Provider Radiology Diagnostic Radiology | DX: S61.012A Laceration without foreign body of left thumb without damage to nail, initial encounter (principal) | CPT/HCPCS: 73140 ==